=== PATIENT | male | born 1970 ===

== ENCOUNTER 2016-06-11 00:40 | Emergency (ER) | payer OTHER ==
[2016-06-11 00:42] VITALS: BMI 26.6
[2016-06-11] MEDS ORDERED: Sodium Chloride 0.9% 1,000 ML IV ONE ×2 (00:42→02:16)
[2016-06-11] MEDS ORDERED: Morphine 4 MG/ML VIAL ONE (00:48)
[2016-06-11] MEDS ORDERED: HYDROmorphone 1 mg/ml ISec IVP STA ×2 (00:52→00:56)
[2016-06-11 01:00] LABS: BASO # 0.1 K/uL (0.0-0.2); EOS # 0.5 K/uL (0.0-0.7); EOS % 4.3 % (0.0-4.0); HEMATOCRIT 44.8 % (35.0-51.0); LYMPH # 4.8 K/uL (1.0-4.3); MEAN CELL VOLUME 89.1 fL (80.0-94.0); MEAN CORPUSCULAR HEMOGLOBIN 29.8 pg (27.0-31.0); MEAN CORPUSCULAR HGB CONC 33.5 g/dL (33.0-37.0); MEAN PLATELET VOLUME 8.9 fL (7.2-11.7); MONO # 1.5 K/uL (0.0-0.8); MONO % 13.1 % (0.0-10.0); WHITE BLOOD COUNT 11.3 K/uL (4.8-10.8)
[2016-06-11] MEDS ORDERED: HYDROmorphone 1 mg/ml ISec ONE (01:05)
[2016-06-11 01:10] LABS: CHLORIDE 97 mmol/L (98-107); SODIUM 141 mmol/L (132-148)
[2016-06-11 01:11] LABS: POTASSIUM 3.2 mmol/L (3.6-5.2)
[2016-06-11 01:12] LABS: GFR AFRICAN-AMERICAN 49
[2016-06-11 01:13] LABS: ALB/GLOB RATIO 1.6 (1.0-2.1); ALKALINE PHOSPHATASE 51 U/L (38-126); ALT/SGPT 45 U/L (21-72); AST/SGOT 32 U/L (17-59); BILIRUBIN,TOTAL 0.6 mg/dL (0.2-1.3); BLOOD UREA NITROGEN 22 mg/dL (9-20); CARBON DIOXIDE 28 mmol/L (22-30); GLUCOSE,RANDOM 103 mg/dL (75-110); TOTAL PROTEIN 7.1 g/dL (6.3-8.3)
[2016-06-11] MEDS ORDERED: Acetaminophen IV 1,000 MG in Premixed IV 1 EA IV STA (01:13)
[2016-06-11] MEDS ORDERED: Sodium Chloride 0.9% 1,000 ML ONE (02:18)
[2016-06-11] MEDS ORDERED: Potassium Chloride 20 mEq ER Tab PO STA (02:20)
[2016-06-11] MEDS ORDERED: Potassium Chloride 20 mEq ER Tab PO ONE (02:24)
--- NOTE | 2016-06-11 02:30 | C.PDOC ---
History Of Present Illness Patient presents to ED c/o sudden onset of RLQ pain that began approx 30-40 min [employer]. Pain is constant and nonradiating, not asscoated with any nausea/vomiting/ diarrhea, chest pain, SOB, cough, fever, dysuria/hematuria. Patient has h/o HTN , PTSD, is s/p cholcystectomy. Time Seen by Provider: 06/11/16 00:41 Chief Complaint (Nursing): Abdominal Pain History Per: Patient, Family ( at bedside) History/Exam Limitations: clinical condition Onset/Duration Of Symptoms: Mins Current Symptoms Are (Timing): Still Present Severity: Moderate Quality Of Discomfort: "Pain" Associated Symptoms: denies: Fever, Chills, Nausea, Vomiting, Diarrhea, Urinary Symptoms Past Medical History Reviewed: Historical Data, Nursing Documentation, Vital Signs Vital Signs: Last Vital Signs Temp 97.6 F 06/11/16 03:43 Pulse 72 06/11/16 03:43 Resp 16 06/11/16 03:43 BP 124/78 06/11/16 03:43 Pulse Ox 97 06/11/16 03:43 - Medical History PMH: HTN Surgical History: Cholecystectomy Family History: States: No Known Family Hx - Social History Hx Alcohol Use: No Hx Substance Use: No Review Of Systems Except As Marked, All Systems Reviewed And Found Negative. Constitutional: Negative for: Fever, Chills Cardiovascular: Negative for: Chest Pain, Palpitations Respiratory: Negative for: Cough, Shortness of Breath Gastrointestinal: Positive for: Abdominal Pain. Negative for: Nausea, Vomiting , Diarrhea Genitourinary: Negative for: Dysuria, Hematuria Skin: Negative for: Rash Physical Exam - Physical Exam Appears: Non-toxic, In Acute Distress (in moderate pain, diaphoretic) Skin: Diaphoretic Oral Mucosa: Moist Cardiovascular: Rhythm Regular Respiratory: Normal Breath Sounds, No Rales, No Rhonchi, No Wheezing Gastrointestinal/Abdominal: Bowel Sounds, Soft, Tenderness (mild right periumbilical and RLQ TTP, (-) Rovsing's), No Distention, No Guarding, No Rebound Back: Normal Inspection, No CVA Tenderness Extremity: Normal ROM, No Pedal Edema, No Calf Tenderness Neurological/Psych: Oriented x3 ED Course And Treatment - Laboratory Results Result Diagrams: 06/11/16 00:55 06/11/16 00:55 ECG: Interpreted By Me, Viewed By Me (sinus bradycardia 58 bpm, normal axis, no acute ST/T wave changes) ECG Interpretation: Normal O2 Sat by Pulse Oximetry: 98 (RA) Pulse Ox Interpretation: Normal - Radiology CXR: Interpreted by Me, Viewed By Me (no infiltrates/effusions) - CT Scan/US ct abd/pelvis Other Rad Studies (CT/US): Read By Radiologist, Radiology Report Reviewed CT/US Interpretation: [facility]. [facility]. Preliminary Radiology Report Call: [phone]. assistance Online chat: [email or web address] Name: MARCEL HOFFMAN Age: 46Years M Date: 06/11/2016. Requesting Physician: YANNA BUTTS : 1970. [employer] Procedure Ordered As Accession Number of. Images. CT ABDOMEN/PELVIS. WO. CT ABD PELVIS W O PO OR IV. CONT. [id number]. J. 679. Provided Clinical History: RLQ PAIN, ELEVATED CR. Page 1 of 2. EXAM: CT Abdomen and Pelvis Without Intravenous Contrast. CLINICAL HISTORY: 46 years old, male; Pain; Abdominal pain and other: Chest pain; Additional info: Rlq pain, elevated cr. TECHNIQUE: Axial computed tomography images of the abdomen and pelvis without intravenous contrast. This. CT exam was performed using one or more of the following dose reduction techniques: automated. exposure control, adjustment of the mA and/or kV according to patient size, and/or use of iterative. reconstruction technique. Coronal and sagittal reformatted images were created and reviewed. COMPARISON: No relevant prior studies available. FINDINGS: Lower thorax: Cardiomegaly with mild coronary calcifications. Dependent atelectasis. 5 mm. noncalcified right lower lobe nodule. ABDOMEN: Liver: There is hepatomegaly and fatty infiltration of the liver. Gallbladder and bile ducts: Prior cholecystectomy without CT complications. No ductal dilation. Pancreas: Unremarkable. No ductal dilation. Spleen: Unremarkable. No splenomegaly. Adrenals: There is multilobulated benign adenomatous enlargement of the adrenal glands. Kidneys and ureters: A sub-mm right UVJ renal ureterolith causes moderate hydroureteronephrosis. There is moderate perinephric and periureteric induration.Infection not excluded. Stomach and bowel: Stomach distended with semisolid food. No mucosal thickening. Appendix: Normal appendix. MARCEL HOFFMAN | Preliminary Radiology Report. PAINT SPRAY TENDER (QA) DISCREPANCY? If there is a discrepancy between the preliminary and final interpretation, please notify [email or web address] via [email or web address]. If you do not have access to our QA portal, call our QA team at [phone]. CONFIDENTIALITY STATEMENT. This report is intended only for the use of the referring physician, and only in accordance with law, If you received this in error, call [phone]. Page 2 of 2. PELVIS: Bladder: Stone may be just entering the bladder Incomplete urinary bladder distention with. prominent wall. Pericystic induration. Cystitis not excluded. Correlate with urinalysis. This may be. reactive. Reproductive: Unremarkable as visualized. ABDOMEN and PELVIS: Intraperitoneal space: Unremarkable. No free air. No significant fluid collection. Bones/joints: Bilateral pars defects at L5/S1 with grade 1 spondylolisthesis. Spondylosis and facet. arthrosis No acute fracture. No dislocation. Soft tissues: Unremarkable. Vasculature: Atheromatous changes of a normal caliber aorta and branch vessels. No abdominal. aortic aneurysm. Lymph nodes: Unremarkable. No enlarged lymph nodes. IMPRESSION: A sub-mm right UVJ renal ureterolith causes moderate hydroureteronephrosis. There is moderate perinephric and periureteric induration. Infection not excluded. 5 mm right lower lobe nodule. In low-risk patients (minimal or absent history of smoking or other known risk factors), recommend CT. at 12 months. If stable, no further follow-up. For high-risk patients (history of smoking or other known. risk factors), recommend initial CT at 6-12 months. If stable, repeat CT at 18-24 months. Thank you for allowing us to participate in the care of your patient. Dictated and Authenticated by: Dana Mar MD. 06/11/2016 2:27 AM Eastern Time ([place] & [place]) Progress Note: Blood work, EKG, UA, CT scan abd/pelvis ordered. Patient given IV Morphine for pain, then IV dilaudid and IV zofran. FAST exam done by me at bedside. IV NS bolus ordered. Bun/Cr elevated, so CT with IV contrast cancelled and dry scan ordered. Reevaluation Time: 03:30 Reassessment Condition: Improved (Patient reassessed, is currently resting comfortably, in no current pain/distress. He states he feels much better. Ct scan shows submm right sided stone with hydronephrosis/ureter. UA (-) for UTI. Patient made aware of elevation in Bun/Cr and lipase. He was given Rxs for Flomax, Vicodin and instructed to follow up with urology within 1 week. Patient understands he should return to ED immediately if symptoms worsen.) Medical Decision Making Medical Decision Making: differential diagnoses considered: appendicitis, kidney stone, IA/ACS, aortic dissection, AAA, pyelonephritis, cholangitis, choledolithiasis, pancreatitis, musculoskeletal pain Disposition Counseled Patient/Family Regarding: Studies Performed, Diagnosis, Need For Followup, Rx Given - Disposition Referrals: Ramez Luna Jr., MD [Staff Provider] - [facility] at [facility] [Outside] Disposition: HOME/ ROUTINE Disposition Time: 03:30 Condition: STABLE Additional Instructions: FOLLOW UP WITH UROLOGY WITHIN 1 WEEK USE PAIN MEDICATION NEEDED DRINK PLENTY OF CLEAR FLUIDS RETURN TO ER IF SYMPTOMS WORSEN Prescriptions: Hydrocodone/Acetaminophen [Hydrocodon-Acetaminophen 5-325] 1 each PO Q6 #12 tablet Tamsulosin [Flomax] 0.4 mg PO DAILY #5 cap Instructions: Kidney Stones (ED), Renal Colic (ED) Forms: Work Excuse Print Language: MALAWIAN - POA Present On Arrival: None - Clinical Impression Clinical Impression: Renal colic on right side, Creatinine elevation, Elevated BUN Procedure: Bedside Ultrasound - Time Out Time Out: Side verified, Patient ID confirmed - Type of Ultrasound Type of Ultrasound:: Abdominal, Trauma(FAST) - Consent Obtained Consent obtained: Emergent consent implied - Performed by Performed by: Attending Physician - Indication Indications:: Abdominal pain - Clinical Concern Clinical Concern: AAA - Aorta Aorta:: Normal - [place](FAST) [place]uma(FAST): Normal
[2016-06-11] MEDS ORDERED: Alum-Mag Hydrox-Simethicone Susp (30 mL) PO STA (03:18)
[2016-06-11 03:20] LABS: RBC URINE 5 /hpf (0-3); URINE BILIRUBIN NEGATIVE (NEGATIVE); URINE BLOOD NEGATIVE (NEGATIVE); URINE COLOR Yellow (YELLOW); URINE GLUCOSE (UA) NORMAL (Normal); URINE KETONE NEGATIVE (NEGATIVE); URINE LEUKOCYTE ESTERASE NEG Leu/uL (Negative); URINE PROTEIN NEGATIVE (NEGATIVE); URINE UROBILINOGEN NORMAL mg/dL (0.2-1.0)
[2016-06-11] MEDS ORDERED: Alum-Mag Hydrox-Simethicone Susp (30 mL) ONE (03:23)
[2016-06-11 03:43] VITALS: BP 124/78; PULSE 72; RESP 16; TEMP 97.6
--- NOTE | 2016-06-11 11:01 | CT ---
PROCEDURE: CT Abdomen and Pelvis without intravenous contrast HISTORY: RLQ PAIN, ELEVATED CR COMPARISON: None. TECHNIQUE: Unenhanced study. Neither oral nor intravenous contrast administered. Radiation dose: Total exam DLP = 545.14 mGy-cm. This CT exam was performed using one or more of the following dose reduction techniques: Automated exposure control, adjustment of the mA and/or kV according to patient size, and/or use of iterative reconstruction technique. FINDINGS: LOWER THORAX: 5 mm pulmonary nodule adjacent to the dome of the diaphragm. Please refer to series 3, image 23. LIVER: Unremarkable. No gross lesion or ductal dilatation. GALLBLADDER AND BILE DUCTS: Status post cholecystectomy. No abnormality is seen in the gallbladder fossa. PANCREAS: Unremarkable. No gross lesion or ductal dilatation. SPLEEN: Unremarkable. ADRENALS: Unremarkable. No mass. KIDNEYS AND URETERS: Unilateral, right hydronephrosis, hydroureter. This appears to be secondary to recently passed calculus now within the urinary bladder at the right ureterovesical junction. No upper tract calculi. Left kidney: Unremarkable. No hydronephrosis. No solid mass. VASCULATURE: Unremarkable. No aortic aneurysm. BOWEL: Unremarkable. No obstruction. No gross mural thickening. APPENDIX: Unremarkable. Normal appendix. PERITONEUM: Unremarkable. No free fluid. No free air. LYMPH NODES: Unremarkable. No enlarged lymph nodes. BLADDER: Recently passed calculus near the right ureterovesical junction measuring 2 mm. This has produced proximal right hydroureter and hydronephrosis. REPRODUCTIVE: Unremarkable. BONES: No acute fracture. Multilevel degenerative changes. Grade 1 anterolisthesis L5-S1. 222 OTHER FINDINGS: None. IMPRESSION: 1. Obstructive uropathy, unilateral right related to recently passed right ureteral calculus. No upper tract calculi identified. 2. 5 mm pulmonary nodule. Further evaluation advised described below. Fleischner society pulmonary nodule recommendations Based on accepted guidelines for nodules between 4-6 mm: Low risk patients followup in 12 months and if no change no further imaging needed. High-risk patients initial followup CT at 6-12 months and then at 18-24 months if no change. A. Low risk patients: Minimal or absent history of smoking and/or other known risk factors B. High risk patients: History of smoking or of other known risk factors Concordant results (preliminary interpretation) provided by [facility]. Procedure Completed: 02:07. Preliminary ([facility]) Report: Dictated and Authenticated: 02:27. Final Interpretation: 10:59. June 11, 2016.
--- NOTE | 2016-06-11 12:25 | RAD ---
PROCEDURE: CHEST RADIOGRAPH, 1 VIEW. Portable semi erect study 02:20. HISTORY: Chest pain diaphoresis. COMPARISON: None available. FINDINGS: LUNGS: Clear. PLEURA: No pneumothorax or pleural fluid seen. CARDIOVASCULAR: No radiographic findings to suggest acute or significant cardiovascular disease. OSSEOUS STRUCTURES: No significant abnormalities. VISUALIZED UPPER ABDOMEN: Normal. OTHER FINDINGS: None. IMPRESSION: No active disease. Concordant results with the preliminary interpretation rendered by the emergency department physician procedure.
[2016-06-12 03:26] VITALS: O2SAT 98
--- NOTE | 2016-06-14 07:45 | CARD ---
APPROVED REPORT EKG Measurement Heart [id number] SD [id number] <Conclusion> Sinus bradycardia Otherwise normal ECG
== END 2016-06-11 03:43 | disposition home or self-care (01) ==
LOC: C.ER 00:40
DX: N13.2 Hydronephrosis with renal and ureteral calculous obstruction (principal); E87.6 Hypokalemia; R79.89 Other specified abnormal findings of blood chemistry
CPT/HCPCS: 71010; 74176; 80053; 81001; 82550; 82553; 83690; 84484; 85025; 85610; 85730; 87086; 93005; 96361; 96374; 96375; 99285; J0131; J1170; J1885; J2270; J2405; J7040